=== PATIENT | female | born 2000 | race Caucasian/White ===

== ENCOUNTER 2022-01-26 12:37 | Emergency (ER) | payer OTHER ==
[2022-01-26] MEDS ORDERED: AZITHROMYCIN250 MG PO (15:05)
== END 2022-01-26 15:20 | disposition home or self-care (01) ==
LOC: ER1 12:37
DX: J02.0 Streptococcal pharyngitis (principal); B27.90 Infectious mononucleosis, unspecified without complication; F17.290 Nicotine dependence, other tobacco product, uncomplicated; Z20.822 Contact with and (suspected) exposure to COVID-19
CPT/HCPCS: 86403; 87081; 87880; 99283; U0002